=== PATIENT | male | born 1970 | race Caucasian/White ===

== ENCOUNTER 2025-02-11 18:20 | Emergency (ER) | payer BC ==
[2025-02-11] MEDS ORDERED: Sodium Chloride 0.9% 10 ML Syringe FLUSH PRN (19:44)
[2025-02-11] MEDS ORDERED: Sodium Chloride 0.9% 2.5 ML Syringe FLUSH PRN (19:44)
[2025-02-11 20:34] LABS: HEMATOCRIT 38.8 % (42.0-52.0); MEAN CORPUSCULAR HEMOGLOBIN 31.7 pg (28.0-32.0); MEAN CORPUSCULAR HGB CONC 33.5 g/dL (32.0-36.0); MEAN CORPUSCULAR VOLUME 94.6 fL (83.0-99.0); MEAN PLATELET VOLUME 9.1 fL (9.4-12.4); PLATELET COUNT,PLT 207 K/uL (150-400); WHITE BLOOD CELL COUNT,WBC 15.28 K/uL (3.9-11.3)
[2025-02-11] MEDS: Acetaminophen 500 MG Tab PO ONE (20:35)
[2025-02-11] MEDS: Morphine 4 MG/ML Syringe IVPUSH ONE ×2 (20:35→23:20)
[2025-02-11 20:58] LABS: A/G RATIO 1.1 (0.9-1.6); ALBUMIN 3.9 g/dL (3.4-5.0); BILIRUBIN TOTAL 0.7 mg/dL (0.2-1.0); C-REACTIVE PROTEIN 1.65 mg/dL (<0.3); CARBON DIOXIDE,CO2 29.6 mmol/L (21.0-32.0); EST CRCL DRUG DOSING (CG) 92.69 mL/min; POTASSIUM,K 3.4 mmol/L (3.5-5.1); PROTEIN TOTAL,TP 7.3 g/dL (6.4-8.2)
[2025-02-11 21:03] LABS: LACTIC ACID 2.4 mmol/L (0.4-2.0)
[2025-02-11 21:12] LABS: EOSINOPHILS ABSOLUTE MAN 0.15 K/uL (0.00-0.45); EOSINOPHILS PERCENT MAN 1 % (0-6); LYMPHOCYTES ABSOLUTE MAN 1.07 K/uL (1.00-4.80); LYMPHOCYTES PERCENT MAN 7 % (24-44); MONOCYTES ABSOLUTE MAN 1.99 K/uL (0.00-0.80); MONOCYTES PERCENT MAN 13 % (0-8)
[2025-02-11 21:13] LABS: SEG NEUTROPHILS ABSOLUTE MAN 12.07 K/uL (1.80-7.70); SEG NEUTROPHILS PERCENT MAN 79 % (41-71)
[2025-02-11] MEDS: Sodium Chloride 0.9% 1,000 ML IV ONE (21:45)
[2025-02-11] MEDS: Lidocaine 1% with EPINEPHrine 1:200,000 30 ML SDV INJECT ONE (23:20)
[2025-02-11] MEDS: cefTRIAXone 2 GM in Sodium Chloride 0.9% 50 ML IV ONE (23:53)
[2025-02-11] MEDS: VANCOmycin 1.25 GM in Sodium Chloride 0.9% 250 ML IV SCH (23:53)
[2025-02-12 00:10] LABS: BODY FLUID TYPE SYN
[2025-02-12 01:10] LABS: APPEARANCE,BODY FLUID CLOUDY; COLOR,BODY FLUID DARK YELLOW; RBC,BODY FLUID 16000 /uL; WBC BODY FLUID 70290 /uL
[2025-02-12] MEDS: Ketorolac 30 MG/ML SDV IVPUSH STA (01:56)
[2025-02-12] MEDS: Acetaminophen/oxyCODONE 325-5 MG Tab PO ONE (01:56)
[2025-02-12 02:25] VITALS: BP 153/89; PULSE 89
== END 2025-02-12 02:24 | disposition home or self-care (01) ==
LOC: MW.ED 18:20
DX: T84.54XA Infection and inflammatory reaction due to internal left knee prosthesis, initial encounter (principal); Z79.899 Other long term (current) drug therapy; Z79.84 Long term (current) use of oral hypoglycemic drugs; Z79.85 Long-term (current) use of injectable non-insulin antidiabetic drugs
CPT/HCPCS: 20610; 36415; 73560; 80053; 83605; 85025; 85610; 86140; 87040; 87070; 87075; 87205; 89050; 89060; 93971; 96365; 96367; 96375; 96376; 99284; A9270; J0696; J1885; J2270; J3371; J3490; J7050; 87077; 87186; 99283